=== PATIENT | male | born 1985 | race Caucasian/White ===

== ENCOUNTER 2018-05-25 14:02 | Emergency (ER) | payer BC ==
[~2018-05-25] VITALS: Ht 177.8 cm; Wt 123.4 kg
[2018-05-25 14:19] VITALS: BP 137/77
--- NOTE | 2018-05-25 14:24 | NUR ---
AMBULATED TO BED # 5
--- NOTE | 2018-05-25 14:30 | NUR ---
PER PATIENT, HAD 4 WISDOM TOOTH EXTRACTED LAST SUNDAY. SENT BY DENTIST TO URGENT CARE LAST SUN.GIVEN 2 UNKNOWN SHOTS AND PRESCRIPTION OF MEDROL AND AUGMENTIN. BUT NO IMPROVEMENT PER PATIENT.DENIES HX
--- NOTE | 2018-05-25 14:43 | NUR ---
Patient being evaluated by physician at bedside.
[2018-05-25] MEDS ORDERED: KETOROLAC 60 MG/2 ML VIAL IM ONE (14:55)
[2018-05-25] MEDS ORDERED: CLINDAMYCIN 600 MG/4 ML VIAL IM ONE (14:55)
[2018-05-25] MEDS ORDERED: DEXAMETHASONE 10 MG/ML VIAL IM ONE (14:55)
[2018-05-25 15:46] VITALS: BP 129/68
--- NOTE | 2018-05-25 15:47 | NUR ---
Patient discharged with v/s stable. Written and verbal after care instructions given and explained. Patient alert, oriented and verbalized understanding of instructions. Ambulatory with steady gait. All questions addressed prior to discharge. ID band removed. Patient advised to follow up with PMD and [employer]ician. Rx of Prednisone, Clindamycin, Tramadol given. Patient educated on indication of medication including possible reaction and side effects. Opportunity to ask questions provided and answered.
== END 2018-05-25 15:47 | disposition home or self-care (01) ==
LOC: MED 14:02
DX: K05.30 Chronic periodontitis, unspecified (principal)
CPT/HCPCS: 96372; 99283; J1100; J1885; J3490